=== PATIENT | female | born 1945 | race African-American/Black ===

== ENCOUNTER 2024-02-13 11:46 | Emergency (ER) | payer MEDICAID, OTHER ==
[~2024-02-13] VITALS: Ht 152.4 cm; Wt 75.0 kg
[~2024-02-13 11:46] MED LIST: HYDR25TA PO; PANT40TA51 MT
[2024-02-13 12:03] VITALS: BP 148/85; PULSE 63; RESP 18; TEMP 98.8; O2SAT 98
[2024-02-13 16:04] LABS: BASOPHILS % 0.3 % (0.0-2.0); EOSINOPHILS % 2.5 % (0.0-5.0); HEMATOCRIT. 39.6 % (36.0-48.0); HEMOGLOBIN. 12.9 g/dL (12.0-16.0); LYMPHOCYTES % 56.6 % (20.0-50.0); MEAN CORPUSCULAR HEMOGLOBIN 28.9 pg (28.0-32.0); MEAN CORPUSCULAR HGB CONC 32.7 g/dL (31.0-37.0); MEAN CORPUSCULAR VOLUME 88.5 fL (81.0-99.0); MEAN PLATELET VOLUME 10.6 fl (7.4-10.4); MONOCYTES % 7.2 % (2.0-8.0); NEUTROPHILS % 33.4 % (40.0-76.0); PLATELET 168 x1000/uL (130-400); RED BLOOD CELL COUNT 4.47 mill/uL (4.2-5.4); RED CELL DISTRIBUTION WIDTH 13.7 % (11.6-14.6)
[2024-02-13 16:16] LABS: CARBON DIOXIDE 30 mEq/L (21-32); CHLORIDE 103 mEq/L (98-107); POTASSIUM 3.7 mEq/L (3.5-5.1); SODIUM 141 mEq/L (136-145)
[2024-02-13 16:17] LABS: CALCIUM 10.4 mg/dL (8.7-10.4)
[2024-02-13 16:21] LABS: CREATININE 0.9 mg/dL (0.6-1.0)
[2024-02-13 16:22] LABS: GLUCOSE 121 mg/dL (70-105); UREA NITROGEN BLOOD 9 mg/dL (9-23)
[2024-02-13 16:22] LABS: CLARITY URINE CLEAR (CLEAR); COLOR URINE YELLOW (YELLOW); GLUCOSE URINE TRACE (NEGATIVE); KETONES URINE NEGATIVE (NEGATIVE); LEUKOCYTE ESTERASE URINE TRACE (NEGATIVE); NITRITE URINE NEGATIVE (NEGATIVE); OCCULT BLOOD URINE NEGATIVE (NEGATIVE); PH URINE 6.5 (4.5-8.0); PROTEIN URINE NEGATIVE (NEGATIVE); SPECIFIC GRAVITY URINE 1.006 (1.005-1.030); UROBILINOGEN URINE 0.2 E.U./dL (0.2-1.0)
[2024-02-13 16:23] LABS: ALANINE AMINOTRANSFERASE 16 IU/L (10-49); ALBUMIN 4.4 g/dL (3.2-4.8); ASPARTATE AMINOTRANSFERASE 24 IU/L (<34)
[2024-02-13 16:24] LABS: BILIRUBIN DIRECT 0.1 mg/dL (<=3.0); BILIRUBIN TOTAL 0.6 mg/dL (0.1-1.0); PROTEIN TOTAL 7.9 g/dL (6.0-8.3)
[2024-02-13] MEDS ORDERED: FLUT30CR TP (16:49)
[2024-02-13] MEDS ORDERED: LORA10TA7 MT (16:49)
[2024-02-13 16:55] LABS: BACTERIA URINE NONE SEEN; RBC URINE NONE SEEN /hpf (0-2); SQUAMOUS EPITHELIAL CELL URINE RARE /lpf (RARE/1+); WBC URINE 0-2 /hpf (0-2)
== END 2024-02-13 17:09 | disposition home or self-care (01) ==
LOC: ER 11:46
DX: R21 Rash and other nonspecific skin eruption (principal); I10 Essential (primary) hypertension; Z90.49 Acquired absence of other specified parts of digestive tract
CPT/HCPCS: 36415; 80048; 80076; 81003; 85025; 99283

== ENCOUNTER 2025-03-28 12:11 | Emergency (ER) | payer OTHER ==
[~2025-03-28] VITALS: Ht 162.6 cm; Wt 75.0 kg
[~2025-03-28 12:11] MED LIST changes: +AMLO10TA80 PO; +ASPI-1406 PO; +BLOO-1465 MC; +ERGO1250 PO; +FLUT30CR TP; +HYDR-3735; +INSU100I28 SQ; +LIP40 PO; +LORA10TA7 MT; +METF-414 PO; +ROSU20CA PO; +VALS160T28 PO
[2025-03-28 12:18] VITALS: O2SAT 98
[2025-03-28 12:57] LABS: CLARITY URINE CLEAR (CLEAR); COLOR URINE YELLOW (YELLOW); GLUCOSE URINE NEGATIVE (NEGATIVE); KETONES URINE NEGATIVE (NEGATIVE); LEUKOCYTE ESTERASE URINE NEGATIVE (NEGATIVE); NITRITE URINE NEGATIVE (NEGATIVE); OCCULT BLOOD URINE NEGATIVE (NEGATIVE); PH URINE 6.5 (4.5-8.0); PROTEIN URINE NEGATIVE (NEGATIVE); SPECIFIC GRAVITY URINE 1.002 (1.005-1.030); UROBILINOGEN URINE 0.2 E.U./dL (0.2-1.0)
[2025-03-28] MEDS ORDERED: DEXAMETHASONE 2MG TABLET PO STA (13:25)
[2025-03-28 13:30] LABS: BASOPHILS % 0.7 % (0.0-2.0); EOSINOPHILS % 2.5 % (0.0-5.0); HEMATOCRIT. 37.9 % (36.0-48.0); HEMOGLOBIN. 12.5 g/dL (12.0-16.0); LYMPHOCYTES % 48.8 % (20.0-50.0); MEAN PLATELET VOLUME 10.1 fl (7.4-10.4); MONOCYTES % 7.1 % (2.0-8.0); NEUTROPHILS % 40.9 % (40.0-76.0); PLATELET 183 x1000/uL (130-400); RED BLOOD CELL COUNT 4.31 mill/uL (4.2-5.4); RED CELL DISTRIBUTION WIDTH 13.4 % (11.6-14.6)
[2025-03-28 13:35] LABS: CREATININE 1.0 mg/dL (0.6-1.0)
[2025-03-28 13:36] LABS: PROTEIN TOTAL 7.4 g/dL (6.0-8.3); UREA NITROGEN BLOOD 11 mg/dL (9-23)
[2025-03-28 13:37] LABS: ASPARTATE AMINOTRANSFERASE 14 IU/L (<34); BILIRUBIN DIRECT < 0.1 mg/dL (<=3.0); BILIRUBIN TOTAL 0.4 mg/dL (0.1-1.0)
[2025-03-28] MEDS: FAMOTIDINE 20MG TABLET PO ONE (13:50)
[2025-03-28] MEDS: DEXAMETHASONE 4MG TABLET PO NR (13:51)
[2025-03-28] MEDS: ACETAMINOPHEN 500MG TABLET PO ONE (15:36)
[2025-03-28 15:37] VITALS: BP 160/80; PULSE 70; RESP 15; TEMP 36.7; O2SAT 98
[2025-03-28] MEDS ORDERED: ACET-2708 MT (15:41)
== END 2025-03-28 15:42 | disposition home or self-care (01) ==
LOC: ER 12:11
DX: H57.9 Unspecified disorder of eye and adnexa (principal); R10.9 Unspecified abdominal pain; I10 Essential (primary) hypertension; Z90.49 Acquired absence of other specified parts of digestive tract; Z79.899 Other long term (current) drug therapy
CPT/HCPCS: 99284; 76705; 80076; 80048; 81003; 83690; 85025; 36415; J8540